=== PATIENT | female | born 1955 | race Caucasian/White ===

== ENCOUNTER 2016-10-04 10:16 | Emergency (ER) | payer OTHER ==
[~2016-10-04] VITALS: Ht 157.5 cm; Wt 73.8 kg
[~2016-10-04 10:16] MED LIST: ACID CONTROL150 MG PO; BUTALBITAL-APA1 EACH PO; CEFPODOXIME PR100 MG PO; CIPRO500 MG PO; COLACE100 MG PO; FIORICET,ESG1 TABLET PO; FLOVENT 11120 INHALA IH; GABAPENTIN100 MG PO; HYDROCODON-ACE1 EAC7 PO; KAPIDEX60 MG PO; LISINOPRIL10 MG PO; MED FOR REFLUX; MOTRIN600 MG PO; NEURONTIN300 MG PO; OMEPRAZOLE40 M1 PO; OXAYDO5 MG PO; PERCOCET 5/31 TABLET PO; PRILOSEC20 MG GT; PROMETHAZINE HC25 M1 PO; SENNA176 MG/5 M PO; SPIRIVA1 INHALATI IH; STOMACH MED; SYMBICORT60 INHALAT IH; TIZANIDINE HCL4 M1 PO; TRAMADOL HCL50 MG PO; VALIUM5 MG PO; VENTOLIN HFA18 GM IH; VICODIN 5-3001 EACH PO; ZOFRAN4 MG PO; [UNRECOGNIZED DRUG - REMARK]; symbicort
[2016-10-04 10:22] VITALS: BP 189/94
[2016-10-04] MEDS ORDERED: PERCOCET 5/31 TABLET PO (14:02)
== END 2016-10-04 14:16 | disposition home or self-care (01) ==
LOC: EME → EDBD 10:16 → EME 14:16
DX: S00.93XA Contusion of unspecified part of head, initial encounter (principal); S43.402A Unspecified sprain of left shoulder joint, initial encounter; M54.2 Cervicalgia; V49.88XA Car occupant (driver) (passenger) injured in other specified transport accidents, initial encounter; F17.200 Nicotine dependence, unspecified, uncomplicated
CPT/HCPCS: 70450; 72125; 73030; 74176; 99281; 99284; J3010; J7030

== ENCOUNTER → 2016-10-27 | Outpatient (CLI) | payer OTHER | END | disposition home or self-care (01) | LOC: CDC 09:56 | DX: Z13.6 Encounter for screening for cardiovascular disorders (principal) | CPT/HCPCS: 93000 ==

== ENCOUNTER 2017-02-23 11:07 | Emergency (ER) | payer OTHER ==
[~2017-02-23] VITALS: Ht 157.5 cm; Wt 68.5 kg
[2017-02-23 12:22] LABS: EOSINOPHIL COUNT 0.2 K/uL (0-0.3); HEMATOCRIT 41.3 % (36.0-46.0); IMMATURE GRANULOCYTE (%) 0.3 % (0.0-0.7); INSTRUMENT ABS NEUTROPHIL CT 3.8 K/uL; LYMPHOCYTE COUNT 1.6 K/uL (1.0-2.8); MCHC 33.9 G/DL (30.0-36.0); MCV 85.5 FL (83-99); MEAN PLAT.VOLUME 11.3 uM^3 (9.5-12.4); MONOCYTE (%) 6.3 % (3-12); MONOCYTE COUNT 0.4 K/uL (0-0.8); NEUTROPHIL (%) 63.4 % (45-76); NEUTROPHIL COUNT 3.8 K/uL (1.8-6.4); PLATELET COUNT 149 K/uL (156-360); RBC DIS.WIDTH-CV 12.5 % (11.8-14.6); RED BLOOD COUNT 4.83 M/uL (3.80-5.20); WHITE BLOOD COUNT 6.1 K/uL (4.1-10.2)
[2017-02-23 13:31] LABS: CHLORIDE 110 mEq/L (99-109); POTASSIUM 4.1 mEq/L (3.7-5.4); SODIUM 142 mEq/L (136-147)
[2017-02-23 13:33] LABS: GLUCOSE 91 mg/dL (70-99)
[2017-02-23 13:34] LABS: ANION GAP 6 MEQ/L (2-14)
[2017-02-23 13:37] LABS: GFR ESTIMATE (CALCULATED) > 59 mL/min/; UREA NITROGEN (BUN) 17 mg/dL (9-23)
[2017-02-23] MEDS ORDERED: ZOFRAN ODT4 MG PO (13:45)
[2017-02-23] MEDS ORDERED: VIBRAMYCIN100 MG PO (13:45)
[2017-02-23 14:06] LABS: TROP-I INTERPRETATION NEGATIVE; TROPONIN-I < 0.01 ng/mL (0.0-0.30)
[2017-02-23 14:30] VITALS: BP 121/75
[2017-02-25 10:51] LABS: LYME DISEASE SEROLOGY SCREEN NEGATIVE (NEGATIVE)
== END 2017-02-23 14:31 | disposition home or self-care (01) ==
LOC: EME 11:07
PROVIDERS: Nurse Practitioner Family
DX: R21 Rash and other nonspecific skin eruption (principal); Z87.891 Personal history of nicotine dependence; Z88.6 Allergy status to analgesic agent; Z88.5 Allergy status to narcotic agent; Z88.8 Allergy status to other drugs, medicaments and biological substances; Z91.041 Radiographic dye allergy status; J45.909 Unspecified asthma, uncomplicated; I10 Essential (primary) hypertension; K21.9 Gastro-esophageal reflux disease without esophagitis; Z86.718 Personal history of other venous thrombosis and embolism; Z86.79 Personal history of other diseases of the circulatory system; Z90.13 Acquired absence of bilateral breasts and nipples
CPT/HCPCS: 80048; 81003; 83605; 84484; 85025; 86618; 93005; 99281; 99284

== ENCOUNTER → 2017-12-11 | Outpatient (CLI) | payer OTHER ==
[~2017-12-11] VITALS: Ht 158.8 cm; Wt 72.6 kg
[~2017-12-11] MED LIST changes: +DOLOPHINE HCL5 MG PO; +FIORICET 50-301 EAC1 PO; +NEURONTIN800 MG PO; +PERCOCET 7.51 TABLET PO; +ULTRAM50 MG PO; +VIBRAMYCIN100 MG PO; +ZESTRIL10 MG PO; +ZOFRAN ODT4 MG PO
== END | disposition home or self-care (01) ==
LOC: AMB 08:08
PROC: 0DJ08ZZ Inspection of Upper Intestinal Tract, Via Natural or Artificial Opening Endoscopic (ICD-10-PCS; principal; 2017-12-11)
DX: K92.0 Hematemesis (principal); R10.811 Right upper quadrant abdominal tenderness; K86.1 Other chronic pancreatitis; K86.81 Exocrine pancreatic insufficiency; I10 Essential (primary) hypertension; J44.9 Chronic obstructive pulmonary disease, unspecified; K21.9 Gastro-esophageal reflux disease without esophagitis; Z86.73 Personal history of transient ischemic attack (TIA), and cerebral infarction without residual deficits; Z87.891 Personal history of nicotine dependence; Z80.0 Family history of malignant neoplasm of digestive organs; Z80.3 Family history of malignant neoplasm of breast; Z80.1 Family history of malignant neoplasm of trachea, bronchus and lung
CPT/HCPCS: 93005